=== PATIENT | female | born 1960 | race Caucasian/White ===

== ENCOUNTER → 2016-07-23 | Outpatient (CLI) | payer BC ==
[~2016-07-23] MED LIST: ADRENALIN IJ; ADVIL200 MG PO; BENADRYL25 M2 PO; BIOTIN5 MG PO; CLARITIN 1010 MG/TAB PO; FLONASEALLERGY NS; GLUCOPHAGE XR500 M1 PO; GLUCOPHAGE500 MG/TAB PO; GLUCOSAMINE & C1 CA1 PO; HCTZ12.5TAB PO; NORETHINDRONE AC5 MG PO; PRILOSEC 20MG20 MG PO; SYNTHROID0.05 MG/TA PO; VITAMIN B-1000 MCG/T PO; VITAMIN B121000 MC2 PO; [UNRECOGNIZED DRUG - OTHER] IJ; [UNRECOGNIZED DRUG - OTHER] PO
== END ==
LOC: MC.RAD 06:50
DX: Z12.31 Encounter for screening mammogram for malignant neoplasm of breast (principal)

== ENCOUNTER → 2017-10-29 | Outpatient (CLI) | payer BC | LOC: MC.RAD 08:39 | DX: Z12.31 Encounter for screening mammogram for malignant neoplasm of breast (principal) ==